=== PATIENT | male | born 1990 | race Caucasian/White ===

== ENCOUNTER 2016-06-01 14:09 | Emergency (ER) | payer OTHER ==
[~2016-06-01] VITALS: Ht 180.3 cm; Wt 79.5 kg
[~2016-06-01 14:09] MED LIST: LORA-302 PO; NABU750T35 PO; OXYC1TAB11 PO
[2016-06-01 14:13] VITALS: BP 118/75; PULSE 67; RESP 16; O2SAT 97
[2016-06-01] MEDS ORDERED: PARO10TA2 PO (14:17)
--- NOTE | 2016-06-01 14:59 | ED.REPORT ---
HPI-Neck Pain Free Text HPI Notes Jun 01, 2016 ED Provider: Jayesh Peacock MD A 25 year old male with a history of C6 - C7 fracture and recent back injury presents to the ED complaining of neck and low back pain. This is accompanied by rib pain. The pt injured his back nine days ago and has experiencing worsening back and neck pain for approximately 4 days. He has been treating this with ice packs and marijuana use. The pt has been unable to take NSAIDS due to previous "stomach problems" associated with pain medication use. The pt denies leg weakness, leg numbness, or incontinence. Nursing Notes Stated Complaint: NECK PAIN Chief Complaint: Head, Face, Neck Trauma Nursing Notes Reviewed: Yes Allergies: Coded Allergies: No Known Allergies (Unverified , 06/01/16) Scheduled Paroxetine (Paroxetine) 10 Mg Tablet 10 MG PO DAILY Scheduled PRN Cyclobenzaprine (Cyclobenzaprine) 5 Mg Tablet 5 MG PO HS PRN PRN Spasm Lorazepam (Ativan) 0.5 Mg Tablet 0.5 MG PO TID PRN PRN For Anxiety General Time Seen by Provider: 14:56 Chief Complaint Other (back/neck pain) Hx Obtained From: Patient Arrived By: Walk-in Sudden in Onset?: No Onset Occurred: 4 days ago Symptom Duration: Since onset Recent Healthcare: No recent hospitalization, Recent doctor visit Similar Sx Previous: No Past Medical History Past Medical History Patient reports history of alcohol and drug abuse Anxiety Anicteric attacks C6 - C7 fracture Past Surgical History None reported. Smoking History Unknown if Ever Smoker Social History Alcohol Use: In recovery Drug Use: In recovery, THC Other Social History: Good social support, Local resident Ambulatory Status Independent Review of Systems Review of Systems Note: rib pain denies incontinence. Constitutional: Denies: Fever Respiratory: Denies: Non-productive cough, Shortness of breath GI: Denies: Abdominal pain Musculoskeletal: Reports: Back pain, Neck pain Skin: Denies Rash Neurologic: Denies: Numbness, Weakness Complete sys rev & neg: except as marked. Physical Exam Initial Vital Signs Vital Signs (First) Date Time Temp Pulse Resp B/P Pulse Ox O2 Delivery O2 Flow Rate FiO2 06/01/16 14:13 37.1 67 16 118/75 97 Room Air Initial VS: Reviewed General/Constitutional: Awake, Alert Neck: Atraumatic, Supple, Full range of motion Neurologic: Oriented X3, Speech NL, No motor deficits, No sensory deficits ENT: Atraumatic, Airway patent, Mucous membranes moist Respiratory / Chest: Atraumatic, Breath sounds NL, Breath sounds = bilat, No respiratory distress Cardiovascular: Heart rate NL, Regular rhythm, Heart sounds NL, No gallop, No murmurs, No rubs Back: Atraumatic, Full range of motion no deformity or focal tenderness in C, T, or L spine left paraspinal muscle tenderness about paralumbar region Upper Extremity / MS: Atraumatic, Full range of motion bilateral strength and sensation intact Skin: Atraumatic, Color NL, No rash, Warm, Dry Head / Eyes: Atraumatic, Normocephalic, PERRL, EOMI Abdomen: Atraumatic, Soft, Non-tender Lower Extremity / Pelvis / MS: Atraumatic, Full range of motion bilateral strength and sensation intact Psychiatric: Affect NL, Mood NL Re-Eval/Medical Decision Med Decision/Clinical Course A 25 year old male with a history of C6 - C7 fracture and recent back injury presents to the ED complaining of neck and low back pain. This is accompanied by rib pain. The pt injured his back nine days ago while lifting a heavy object and has been experiencing worsening back and neck pain for approximately 4 days. He has been treating this with ice packs and marijuana use. The pt has been unable to take NSAIDS due to previous "stomach problems" associated with pain medication use. The pt denies leg weakness, leg numbness, or incontinence. The emergency department the patient is afebrile with stable vital signs and is neurologically intact with good strength and sensation in the bilateral lower extremities. There is no midline cervical, thoracic or lumbar tenderness. No history, signs or symptoms suggestive of epidural or paraspinal abscess. Overall presentation most consistent with muscle strain/spasm. I see no indication for imaging studies or further workup at this time. Patient advised to avoid NSAIDs given his history of NSAID-induced gastritis. Patient will take Tylenol and use ice packs/hot packs/stretching. A limited supply of Flexeril was provided for use at night should he experience breakthrough symptoms. Follow-up and return precautions were reviewed in detail and the patient was discharged in good condition. He will follow-up with his primary care doctor. Source of Hx: Old records Re-Evaluation/Progress : Time of Eval: 15:20 Patient Status: Condition improved Re-Evaluation/Progress Note: Pt informed of his diagnosis and the plan for discharge. The pt understands and agrees with the plan. All questions are addressed at this time. Counseled Regarding: Diagnosis, Need for follow-up, When/why to return to ED Discharge & Departure Primary Impression: Back sprain Additional Impression: History of cervical spine trauma Disposition: Home Discharge Condition All VS Reviewed: Yes Condition: Stable Patient Instructions: Acute Low Back Pain (ED) Additional Instructions: Alternate ice packs and heat packs to alleviate pain. You can also try stretching, but avoid bed rest. Take Flexeril as directed at night. Do not drive , drink alcohol, or consume acetaminophen while taking the Flexeril. Follow up with your primary care physician for further evaluation. Return to the emergency department if you develop any new or worsening symptoms. Referrals: Joanne Shannon MD (PCP) ED Scribe Statement Portions of this note were transcribed by Lakeisha Rangel. I, Dr. Peacock personally performed the history, physical exam and medical decision-making; I reviewed and confirmed the accuracy of the information in the transcribed note. Signed by: Dedrick Mooney, 06/01/2016 and 1702. copies to: Joanne Shannon MD, Beck O MD Jun 01, 2016 14:59 LAKEISHA RANGEL Jun 01, 2016 16:17
[2016-06-01] MEDS ORDERED: CYCL5TAB PO (16:18)
[2016-06-01 16:37] VITALS: BP 118/68; PULSE 72; RESP 14; O2SAT 98
== END 2016-06-01 16:38 | disposition home or self-care (01) ==
LOC: SED 14:09
DX: S23.9XXA Sprain of unspecified parts of thorax, initial encounter (principal); X50.0XXA Overexertion from strenuous movement or load, initial encounter; Y93.89 Activity, other specified; Y92.9 Unspecified place or not applicable; Y99.8 Other external cause status; Z87.828 Personal history of other (healed) physical injury and trauma